=== PATIENT | male | born 1980 | race Two or more races ===

== ENCOUNTER 2022-12-21 16:25 | Emergency (ER) | payer MEDICAID ==
[~2022-12-21] VITALS: Ht 172.7 cm; Wt 109.1 kg
[2022-12-21] MEDS ORDERED: PredniSONE 20 MG TABLET PO ONE (17:15)
[2022-12-21] MEDS ORDERED: ACETAMINOPHEN 500 MG TABLET PO ONE (17:15)
[2022-12-21] MEDS ORDERED: DOXYCYCLINE HYCLATE 100 MG TABLET PO ONE (17:15)
[2022-12-21] MEDS ORDERED: NEOMYCIN/POLYMYXIN B/HYDROCORT 10 ML OTIC SOLUTION AU ONE (17:15)
[2022-12-21] MEDS ORDERED: AMOX TR/POT CLAV 875 MG/125 MG TABLET PO ONE (17:15)
[2022-12-21] MEDS ORDERED: NEOMYCIN/POLYMYXIN B/HYDROCORT 10 ML OTIC SUSPENSION AU ONE (17:30)
[2022-12-21] MEDS ORDERED: CLOTRIMAZOLE 1% 15 GM CREAM TP ONE (17:45)
[2022-12-21 17:46] LABS: BASOPHILS % (AUTO) 0.5 % (0.0-2.0); EOSINOPHILS % (AUTO) 1.6 % (1.0-6.0); HEMATOCRIT 38.8 % (41-53); HEMOGLOBIN 12.7 g/dL (13.5-17.5); LYMPHOCYTES % (AUTO) 19.8 % (22.0-44.0); MEAN CORPUSCULAR HEMOGLOBIN 27.7 pg (26.0-34.0); MEAN CORPUSCULAR HGB CONC 32.7 G/dL (31.0-37.0); MEAN CORPUSCULAR VOLUME 85 fL (80-100); MONOCYTES # (AUTO) 0.9 K/uL (0.1-1.0); MONOCYTES % (AUTO) 8.8 % (2.0-9.0); NEUTROPHILS % (AUTO) 69.3 % (40.0-70.0); PLATELET COUNT (AUTO) 276 K/uL (150-450); RED BLOOD CELL COUNT(AUTO) 4.58 MIL/uL (4.50-5.90); RED CELL DISTRIBUTION WIDTH 15.2 % (11.5-14.5)
[2022-12-21 17:57] LABS: ANION GAP 6 mmol/L (8-16); CALCIUM, TOTAL 8.7 mg/dL (8.8-10.5); CARBON DIOXIDE 28 mmol/L (22-29); CHLORIDE 102 mmol/L (98-107); CREATININE 0.79 mg/dL (0.60-1.30); GLOMERULAR FILTR. RATE CALC > 60 mL/min (>60); GLUCOSE,RANDOM 102 mg/dL (70-110); POTASSIUM 4.4 mmol/L (3.5-5.1); SODIUM SERUM 136 mmol/L (136-145)
[2022-12-21 18:04] LABS: ALANINE AMINOTRANSFERASE 23 U/L (12-78); ALBUMIN 3.5 g/dL (3.4-5.0); ALKALINE PHOSPHATASE 93 U/L (46-116); ASPARTATE AMINOTRANSFERASE 21 U/L (15-37); BILIRUBIN,TOTAL 0.2 mg/dL (0.1-1.0); TOTAL PROTEIN, SERUM 7.7 g/dL (6.4-8.2)
[2022-12-21 18:05] VITALS: BP 149/84
[2022-12-21] MEDS ORDERED: CLOT15CR29 TP (18:19)
[2022-12-21] MEDS ORDERED: AMOX1TAB16 PO (18:19)
[2022-12-21] MEDS ORDERED: DOXY-354 PO (18:19)
[2022-12-21] MEDS ORDERED: CORTSOL AU (18:19)
== END 2022-12-21 18:52 | disposition home or self-care (01) ==
LOC: EMS 16:30
DX: L03.221 Cellulitis of neck (principal); H60.93 Unspecified otitis externa, bilateral; B35.6 Tinea cruris; F32.A Depression, unspecified
CPT/HCPCS: 99284; 80053; 85025; 36415; J7512